=== PATIENT | male | born 1940 | race Caucasian/White ===

== ENCOUNTER 2017-07-11 12:10 | Emergency (ER) | payer MEDICARE, BC ==
--- NOTE | 2017-07-11 12:40 | EDM.PDOC ---
ED HPI GENERAL MEDICAL PROBLEM - General Stated Complaint: [facility] Time Seen by Provider: 07/11/17 12:27 Source of Information: Reports: EMS - History of Present Illness INITIAL COMMENTS - FREE TEXT/NARRATIVE: 76-year-old male has been been brought to the ED by [facility]. He hadgone out this morning to do chores in the neighborhood of around 8:30 to 9: 00. Apparently when he did not show up at the house someone did go out to look for him and found him lying on the ground unresponsive by the barn. He was not breathing and CPR was initially started by family and then by [facility] upon their arrival. [facility] was called out at around 10:55 AM. They did call [facility] to intercept at around 11:09 AM while they were still in route to the [facility]. Upon their arrival family had moved him into the barn and was attempting CPR. Patient was hooked to compliance monitor which did show asystole. His mouth and tongue was "frozen as well as hands and feet. Remainder of upper and lower extremities very cold. Although he was wearin 3 coats trunk was also getting cold according to EMS. [place] photographic enlarger operator did call for advice at 11:35 AM. He was still in asystole. Face, tongue, and mouth still "frozen solid". Upper and lower extremities extremely cold the trunk also found to be "cold". We did discuss the option of trying to do rewarming, continue resuscitation. With face and mouth tissue frozen solid and also consideration that he had suffered some type of catastrophic event 2 to 3 hours ago at the time he "collapsed" it did not seem reasonable to continue resucitation. CPR was stopped at 11:35 which will be the stated time of . - Related Data Allergies Allergy/AdvReac Type Severity Reaction Status Date / Time No Known Allergies Allergy Verified 05/01/14 04:45 Home Meds: Home Meds Ascorbate Calcium [Vitamin C] 500 mg PO DAILY 05/01/14 [History] Aspirin [Halfprin] 81 mg PO DAILY 05/01/14 [History] Calcium Carbonate/Vitamin D3 [Calcium 600 + Vit D Tablet] 600 mg PO DAILY [History] Fish Oil/Rowdy-3 Fatty Acids [Fish Oil] 1,200 mg PO DAILY 05/01/14 [History] Folic Acid 800 mg PO DAILY 05/01/14 [History] Gabapentin [Neurontin] 100 mg PO BID PRN #30 cap 05/01/14 [Rx] Hydrocodone/Acetaminophen [Vicodin 5-300 mg Tablet] 1 each PO 5XDAY PRN #20 tablet 05/01/14 [Rx] Isosorbide Mononitrate [Isosorbide Mononitrate ER] 30 mg PO DAILY 05/01/14 [ History] Metoprolol Tartrate 12.5 mg PO BID 05/01/14 [History] Multivit-Min/FA/Lycopene/Lut [Centrum Silver] 1 tab PO DAILY 05/01/14 [History] Olmesartan [Benicar] 40 mg PO DAILY 05/01/14 [History] Omeprazole [Prilosec] 20 mg PO DAILY 05/01/14 [History] Potassium Chloride 20 meq PO BID 05/01/14 [History] Simvastatin [Zocor] 40 mg PO DAILY 05/01/14 [History] Thiamine HCl [B-1] 100 mg PO DAILY 05/01/14 [History] Vitamin E 400 units PO DAILY 05/01/14 [History] amLODIPine [Norvasc] 10 mg PO DAILY 05/01/14 [History] Social & Family History - Tobacco Use Smoking Status *Q: Never Smoker - Alcohol Use Days Per Week of Alcohol Use: 0 - Recreational Drug Use Recreational Drug Use: No ED ROS GENERAL - Review of Systems Review Of Systems: Unable To Obtain ED EXAM, CPR - Physical Exam Exam: See Below General Appearance: Other (unresponsive, ) Eye Exam: Bilateral Eye: Other (pupils are dilated) Ears: Normal External Exam Nose: Other (nose is still frozen) Throat/Mouth: Other (there is no blood in the mouth, a small amount of vomitus) Neck: Other (no visible injury) Respiratory Chest: Other (no visible injury to the chest) Cardiovascular: Absent Heart Sounds GI/Abdominal Exam: Other (no visible injury to the abdomen) Extremities: Other (hands and feet are extremely cold, niot frozen at this time , arms legs also very cold, no visible physical injury to the upper or lower extremities, no visible deformity.) Skin Exam: Other (There is some mottling of the neck and upper chest, skin of upper and lower extremities extremely cold as documented) Course - Re-Assessments/Exams Free Text/Narrative Re-Assessment/Exam: 07/11/17 13:52 his and niece did arrive here a short time ago. They verified that he gone out to do chores around 8:30 to 9:00 this morning, about 2 hours from the time that he was found. When he did not show up at the house it was likely the neice that went to look for him. He was found near an automatic water dispenser for the livestock sitting in a hunched over position. It was half covered with a tarp, appears that it may have been frozen or malfunctioning due to the extreme cold and that he was attempting to cover it at the time of his collapse. His states that he does have history of hypertension and coronary artery disease. He did have a stent placed many years ago. 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 He had an appointment to see a Neurosurgeon for that in about 2 and half weeks. She is not aware that he has been having recent chest pains, recent difficulty breathing or other major unusual recent symptomatology. I have discussed this with [facility] [address] coroner, Sia Stanford. We agree that the most likely cause of would be cardiac arrhythmia and that will be listed as his cause of , stated time of will be 11:35 when CPR was stopped. Departure - Departure Time of Disposition: 14:15 Disposition: 20 Preliminary Cause of *Q: Cardiac Arrest Clinical Impression: Paroxysmal cardiac arrhythmia - Discharge Information
== END 2017-07-11 15:00 | disposition expired ==
LOC: JD.ED 12:10
DX: I49.8 Other specified cardiac arrhythmias (principal); Z79.82 Long term (current) use of aspirin; Z79.899 Other long term (current) drug therapy
CPT/HCPCS: 99284